=== PATIENT | female | born 1970 | race Caucasian/White ===

== ENCOUNTER → 2017-10-22 09:26 | Outpatient (POV) | payer SELFPAY | PROVIDERS: PCP Family Medicine; Visit Provider Otolaryngology | DX: Z00.00 Encounter for general adult medical examination without abnormal findings (principal) ==

== ENCOUNTER → 2018-02-21 16:18 | Outpatient (CLI) | payer BC, SELFPAY | PROVIDERS: PCP Family Medicine; Visit Provider Otolaryngology | DX: G47.30 Sleep apnea, unspecified (principal); G47.19 Other hypersomnia; R06.83 Snoring | CPT/HCPCS: 95806 ==

== ENCOUNTER 2022-05-11 06:29 | Day surgery (SDC) | payer BC, SELFPAY ==
[2022-05-07 13:11] VITALS: BMI 35.2
[2022-05-11 06:46] VITALS: BP 141/71; PULSE 96; RESP 18; TEMP 36.4; O2SAT 97
[2022-05-11 06:49] LABS: Urine Pregnancy, HCG Qual. Negative (Negative)
--- NOTE | 2022-05-11 07:04 | EXP.ANES.CKL ---
[facility] Disclaimer: The information contained in this section may have been updated after the patient was seen, as this information can be updated by other users. Medical History No significant past medical history Surgical History No significant past surgical history Family History Other No significant family history Social History Smoking Status: Never smoker alcohol intake: never substance use type: denies use current occupational status: other Travel in the last 8 weeks: None [facility] Anesthesia Checklist Patient Identification Patient Identification: Arm Band and Verbal (Name & ) Structural Data Admitted From: Home Planned Operative Procedure/s: Colonoscopy Consent for Planned Operative Procedure(s) Verified: Yes NPO Status Verified Time NPO: 00:00 Airway Assessment C-Spine Mobility Assessed: Yes TMJ Mobility Assessed: Yes Dentition: Good Dentition Neurological Assessment Level of Consciousness: Awake Hx Seizures: No Numbness or tingling in extremities: No Anesthesia Plan Anesthesia Risk discussed: Yes Anesthesia Plan: Verified ASA Class: I Anesthesia Type: MAC
[2022-05-11 07:22] VITALS: O2SAT 97
--- NOTE | 2022-05-11 07:59 | HMH.SCOPE ---
Procedure: Date: 05/11/22 Patient Date of :: 1970 Procedure Performed:: Total colonoscopy to terminal ileum with polypectomy by biopsy forceps Indications:: Patient is a 51-year-old female who presents for initial screening colonoscopy Performing Provider:: Lewis Paez MD Referring Provider:: Panfilo Chong MD Sedation:: MAC sedation Procedure:: Patient history was obtained and appropriate physical examination was performed. Patient's medications and allergies were reviewed. Informed consent was obtained after explaining the benefits, alternatives, and risks of the procedure including, but not limited to, bleeding, perforation, missed lesions, and adverse reaction to anesthesia medications. Patient was transported to endoscopy procedure room. Patient was connected to monitoring devices. Throughout the procedure the patient's blood pressure, pulse, and oxygen saturations were monitored continuously. Patient identification and planned procedure were verified by the staff. Patient was positioned in lateral decubitus position. Digital anorectal exam was performed. Variable stiffness Olympus colonoscope was inserted and advanced under direct visualization to the cecum. Adequacy of the colonic preparation was noted. The colonoscope was advanced a short distance into the terminal ileum. The colonoscope was then slowly withdrawn while carefully examining the color, texture, anatomy, and integrity of the mucosoa circumferentially. Within the rectum retroflexion was performed. Colonoscope was then withdrawn. Findings:: There was some particulate liquid stool. There were some stool balls in the rectosigmoid region. There was undigested vegetable matter in the cecum which could not be completely cleared. The thorough transcolonoscopic irrigation and suctioning was performed. There was a tiny diminutive approximately 2 mm polyp in the cecum removed with biopsy forceps. Impression: Suboptimal preparation Tiny 2 mm adenomatous appearing polyp in the cecum Recommendations:: Given the findings of the polyp was suboptimal preparation likely repeat colonoscopy in 2 or 3 years possibly with multi day prep Complications:: None immediately apparent Estimated blood obtained (mL): 1
[2022-05-11 08:00] VITALS: BP 76/41; PULSE 78; RESP 16; TEMP 36.8; O2SAT 92
[2022-05-11 08:10] VITALS: BP 79/48; PULSE 70; RESP 16; O2SAT 93
[2022-05-11 08:20] VITALS: BP 100/60; PULSE 79; RESP 16; O2SAT 93
[2022-05-11 08:32] VITALS: BP 108/63; PULSE 74; RESP 17; O2SAT 94
== END 2022-05-11 08:37 | disposition home or self-care (01) ==
PROVIDERS: PCP Family Medicine; Visit Provider Surgery
PROC: 0DJD8ZZ Inspection of Lower Intestinal Tract, Via Natural or Artificial Opening Endoscopic (ICD-10-PCS; CPT 45380; principal; 2022-05-11 07:30)
DX: Z12.11 Encounter for screening for malignant neoplasm of colon (principal); D12.0 Benign neoplasm of cecum
CPT/HCPCS: 45380; 81025; J2704

== ENCOUNTER → 2023-01-31 15:54 | Outpatient (CLI) | payer BC, SELFPAY ==
[2023-01-31 16:00] LABS: Adenovirus,PCR Not Detected (NotDetected); Bordetella Pertussis Not Detected (NotDetected); Chlamydophila Pneumoniae, PCR Not Detected (NotDetected); Coronavirus 229E Not Detected (NotDetected); Coronavirus NL63 Not Detected (NotDetected); Coronavirus OC43 Not Detected (NotDetected); Coronovirus HKU1,PCR Not Detected (NotDetected); Human Metapneumovirus Not Detected (NotDetected); Influenza A, PCR Not Detected (NotDetected); Influenza AH1, 2009 Not Detected (NotDetected); Influenza AH1, PCR Not Detected (NotDetected); Influenza AH3,PCR Not Detected (NotDetected); Influenza B, PCR Not Detected (NotDetected); Mycoplasma Pneumoniae, PCR Not Detected (NotDetected); Parainfluenza 1, PCR Not Detected (NotDetected); Parainfluenza 2, PCR Not Detected (NotDetected); Parainfluenza 3, PCR Not Detected (NotDetected); Parainfluenza 4, PCR Not Detected (NotDetected); Respiratory Syncytial Virus Not Detected (NotDetected); Rhinovirus/Enterovirus Not Detected (NotDetected)
[2023-01-31 18:49] LABS: Coronavirus 19, PCR Detected (NotDetected)
== END ==
PROVIDERS: PCP Family Medicine; Visit Provider Family Medicine
DX: Z20.822 Contact with and (suspected) exposure to COVID-19 (principal); U07.1 COVID-19
CPT/HCPCS: 87581; 87632; 87635; 87798

== ENCOUNTER 2023-05-30 08:00 | Outpatient (RCR) | payer BC, SELFPAY ==
--- NOTE | 2023-02-11 16:00 | HMH.OTOPEV ---
OT Inpatient Evaluation Rehab OT Outpatient Eval Start: 02/11/23 15:43 Freq: Status: Active Protocol: Document 02/11/23 15:43 RMARSHALL (Rec: 02/11/23 15:59 RMARSHALL [id number]) E-signed By Khadar Oliver, OT Outpatient Therapy Subjective History Subjective History Pt is a 52 year old female who reports to therapy for initial evaluation to left shoulder. Pt explains ~3 months ago she woke up with left shoulder pain and decreased motion. She does not recall a specific injury causing her pain to begin. She does have concerns due to continued progression of decreased AROM and pain. 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 She explains she does have constant repetitive motion bilaterally. Pt is right hand dominant. Therapist does observe significant decrease in pain and strength as well as stiffness in left shoulder. Pt also expresses difficulty with daily activities such as dressing, showering (washing her hair), and heavier household tasks. At this time , she is unable to reach above her head with left shoulder due to pain and decreased motion. Pt will continue to be seen twice a week in order to address all deficitis. Short term goals: 1. Pt will increase left shoulder flexion to 110 degrees in order to complete daily overhead tasks independently ~50% of the time . 2. Pt will increase L shoulder abduction to 110 degrees to complete upper body dressing independently ~50% of the time. 3. Pt will increase L shoulder ER/IR to 60 degrees ( ER) and 45 degrees (IR) in order to complete lower body dressing (putting on and taking off belt) independently ~50% of the time. 4. Pt will increase strength to 3+/5 throughout left shoulder in order to complete heavier household tasks ( laundry, mopping, vacuuming) independently ~50% of the time . 5. Pt will verbalize decreased pain levels at worst in L shoulder to a 5/10 in order to complete daily ADLs independently ~50% of the time . 6. Pt will demonstrate improved endurance by completing left shoulder exercises for ~20 minutes prior to rest break in order to increase his tolerance for daily work activities. 7. Pt will demonstrate independence with HEP of AAROM exercises to increase overall functional use of left shoulder in daily activities ~ 75% of the time. terminal makeup operator goals: 1. Pt will increase L shoulder flexion to 125 degrees in order to complete daily overhead tasks independently ~75% of the time . 2. Pt will increase L shoulder abduction to 120 degrees to complete upper body dressing independently ~75% of the time. 3. Pt will increase L shoulder ER/IR to 70 degrees ( ER) and 60 degrees (IR)in order to complete lower body dressing (putting on and taking off belt) independently ~75% of the time. 4. Pt will increase strength to 4-/5 throughout left shoulder in order to complete heavier household tasks ( laundry, mopping, vacuuming) independently ~75% of the time . 5. Pt will verbalize decreased pain levels at worst in L shoulder to a 3/10 in order to complete daily ADLs independently ~75% of the time . 6. Pt will demonstrate improved endurance by completing L shoulder exercises for ~30 minutes prior to rest break in order to increase his tolerance for daily work activities. 7. Pt will demonstrate independence with HEP of Rotator cuff strengthening exercises to increase overall functional use of L shoulder for daily activities ~90% of the time. New diagnosis of cancer in past 12 No months? Chief Complaint Pain,Stiff,Weakness Symptom Type Ache,Throb,Sharp,Dull,Stabbing Symptoms Relieved By Rest/Positioning Symptoms Aggravated By Physical Activity,Lifting Prior Functional Limitations None Current Functional Limitations Reaching,Lifting,Housework, Dressing,Desk Work/Reading, Driving,Sleeping,Recreation Activity Symptom Description Intermittent,Activity Dependent Level of pain today (0-10) 2 Pain scale - at its best (0-10) 0 Pain scale - at its worst (0-10) 7 Shoulder/Elbow Eval Shoulder Objective Measurements Shoulder ROM Left Shoulder Abduction Active Range of 75 degrees Motion (degrees) Shoulder Flexion Active Range of Motion 100 degrees (degrees) Query Text: Shoulder External Rotation Active Range 50 degrees of Motion (degrees) Shoulder Internal Rotation Active Range 25 degrees of Motion (degrees) Shoulder MMT Shoulder Abduction Strength Grade 3- Fair- Shoulder Flexion Strength Grade 3- Fair- Shoulder External Rotation Strength 3- Fair- Grade Shoulder Internal Rotation Strength 3- Fair- Grade Shoulder Strength Patient Testing Sitting Position Elbow Objective Measurements QuickDASH Activities Please rate your ability to do the following activities in the last week by selecting the number below the appropriate response. 1. Open a tight or new jar. Moderate difficulty 2. Do heavy electrical linesworker (e.g., wash Moderate difficulty ch, floors). 3. Carry a shopping bag or briefcase. Moderate difficulty 4. Wash your back. Moderate difficulty 5. Use a knife to cut food. Mild difficulty 6. Recreational activities in which you Moderate difficulty take some force or impact through your arm, shoulder, or hand (e.g., golf, hammering, tennis, etc.). 7. During the past week, to what extent Quite a bit has your arm, shoulder or hand problem interfered with your normal social activities with family, friends, neighbors or groups? 8. During the past week, were you Moderately limited limited in your work or other regular daily activites as a result of your arm, shoulder or hand problem? 9. Arm, shoulder or hand pain. Moderate 10. Tingling (pins and needles) in your Mild arm, shoulder or hand. 11. During the past week, how much Moderate difficulty difficulty have you had sleeping because of the pain in your arm, shoulder or hand? Quick DASH 32 Work Module (optional) The following questions ask about the impact of your arm, shoulder or hand problem on your ability to work (including homemaking if that is your main work role). 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 Yes 1. Using your usual technique for your Mild difficulty work? 2. Doing your usual work because of arm, Mild difficulty shoulder or hand pain? 3. Doing your work as well as you would No difficulty like? 4. Spending your usual amount of time No difficulty doing your work? Quick Dash Work Module Score 6 OT Outpatient Assessment Impairments Problems/Impairments Palpation Tenderness,Impaired Range of Motion,Impaired Strength,Impaired Endurance, Impaired Lifting,Impaired Dressing,Impaired Shower/ Bathing,Impaired Household Care,Impaired Recreational Activities,Impaired Work Activities,Subjective C/O Pain Prognosis Rehab Potential Good Clinical Impression Consistent with Diagnosis Yes Outpatient Therapy Plan of Care Treatment Plan May Include Therapeutic Exercise Including Home Yes Exercise Program Manual Therapy Techniques Yes Neuromuscular Re-education Yes Therapeutic Activities to Return to Yes Previous Functional/Work Level ADL/Self Care Education Yes Dry Needling Yes Thermal Modalities Yes Electrical Stimulation Yes Ultrasound/Phonophoresis Yes Iontophoresis Yes Orthotics/Bracing/Splinting Yes Massage Yes Eval/Re-Eval Yes Frequency Times per week 2 Duration Number of Weeks 6 Addendums This patient is a candidate for social No or vocational rehab? Patient/Guardian verbally acknowledges Yes understanding of treatment program and consents to further treatment? Patient/Guardian verbally acknowledges Yes understanding of diagnosis, prognosis and goals for treatment? Eval Complexity OT Charge 12742 - Moderate Complexity PHYSICIAN CERTIFICATION: I certify the specified therapy services for Radha Segura are required, authorized, and reviewed every 30 days.
--- NOTE | 2023-03-13 14:49 | HMH.RHREAS ---
Rehab Reassessment Rehab OP Re-assessment Start: 02/11/23 15:42 Freq: Status: Active Protocol: Document 03/13/23 13:58 BREANNE (Rec: 03/13/23 14:49 BREANNE [id number]) E-signed By Khadar Oliver OT QuickDASH Activities Please rate your ability to do the following activities in the last week by selecting the number below the appropriate response. 1. Open a tight or new jar. Moderate difficulty 2. Do heavy hearing therapist (e.g., wash Mild difficulty ch, floors). 3. Carry a shopping bag or briefcase. Mild difficulty 4. Wash your back. Moderate difficulty 5. Use a knife to cut food. Mild difficulty 6. Recreational activities in which you Moderate difficulty take some force or impact through your arm, shoulder, or hand (e.g., golf, hammering, tennis, etc.). 7. During the past week, to what extent Slightly has your arm, shoulder or hand problem interfered with your normal social activities with family, friends, neighbors or groups? 8. During the past week, were you Slightly limited limited in your work or other regular daily activites as a result of your arm, shoulder or hand problem? 9. Arm, shoulder or hand pain. Moderate 10. Tingling (pins and needles) in your Mild arm, shoulder or hand. 11. During the past week, how much Mild difficulty difficulty have you had sleeping because of the pain in your arm, shoulder or hand? Quick DASH 26 Work Module (optional) The following questions ask about the impact of your arm, shoulder or hand problem on your ability to work (including homemaking if that is your main work role). 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 Yes 1. Using your usual technique for your No difficulty work? 2. Doing your usual work because of arm, No difficulty shoulder or hand pain? 3. Doing your work as well as you would No difficulty like? 4. Spending your usual amount of time No difficulty doing your work? Quick Dash Work Module Score 4 Rehab Re-assessment Subjective Subjective Maybe a little better. Objective Objective Notes Pt continues to be seen twice a week in order to address left shoulder deficits. Each session pt engages in AROM, AAROM and strengthening exercises. Pt also receives PROM manual stretching in flexion, abduction, ER, and IR . Modalities are provided in order to decrease pain/ inflammation. Assessment Progress Assessment Progressing as Expected Assessment Notes Pt demonstrates improvement with AROM at left shoulder since initial evaluation. Pt does show improvement, but still remains limited in AROM. Pt reports her worst pain is now a 6/10 and usually occures in abduction. Pt is very consistent about attending therapy sessions. At this time, pt will continue to be seen for 4 more weeks. Current AROM L shoulder Flex: 128 degrees Abd: 105 degrees ER: 72 degrees IR: 45 degrees Patient goals met Short term goals 1. Pt will increase left shoulder flexion to 110 degrees in order to complete daily overhead tasks independently ~50% of the time . 3. Pt will increase L shoulder ER/IR to 60 degrees ( ER) and 45 degrees (IR) in order to complete lower body dressing (putting on and taking off belt) independently ~50% of the time. 6. Pt will demonstrate improved endurance by completing left shoulder exercises for ~20 minutes prior to rest break in order to increase his tolerance for daily work activities. 7. Pt will demonstrate independence with HEP of AAROM exercises to increase overall functional use of left shoulder in daily activities ~ 75% of the time. Goals Not Met See below Revised Goals Short term goals: 2. Pt will increase L shoulder abduction to 110 degrees to complete upper body dressing independently ~50% of the time. 4. Pt will increase strength to 3+/5 throughout left shoulder in order to complete heavier household tasks ( laundry, mopping, vacuuming) independently ~50% of the time . 5. Pt will verbalize decreased pain levels at worst in L shoulder to a 5/10 in order to complete daily ADLs independently ~50% of the time . predatory animal exterminator goals: 1. Pt will increase L shoulder flexion to 125 degrees in order to complete daily overhead tasks independently ~75% of the time . 2. Pt will increase L shoulder abduction to 120 degrees to complete upper body dressing independently ~75% of the time. 3. Pt will increase L shoulder ER/IR to 70 degrees ( ER) and 60 degrees (IR)in order to complete lower body dressing (putting on and taking off belt) independently ~75% of the time. 4. Pt will increase strength to 4-/5 throughout left shoulder in order to complete heavier household tasks ( laundry, mopping, vacuuming) independently ~75% of the time . 5. Pt will verbalize decreased pain levels at worst in L shoulder to a 3/10 in order to complete daily ADLs independently ~75% of the time . 6. Pt will demonstrate improved endurance by completing L shoulder exercises for ~30 minutes prior to rest break in order to increase his tolerance for daily work activities. 7. Pt will demonstrate independence with HEP of Rotator cuff strengthening exercises to increase overall functional use of L shoulder for daily activities ~90% of the time. Plan Plan Continue with OT plan of care at this time Frequency of Therapy 2x's a week Duration of therapy 4 more weeks Time and Billing Re-Eval Time 12 Re-Eval Billing Units 1 PHYSICIAN CERTIFICATION: I certify the specified therapy services for Radha Segura are required, authorized, and reviewed every 30 days.
--- NOTE | 2023-04-11 09:49 | HMH.RHREAS ---
Rehab Reassessment Rehab OP Re-assessment Start: 02/11/23 15:42 Freq: Status: Active Protocol: Document 04/11/23 08:05 BREANNE (Rec: 04/11/23 09:49 BREANNE [id number]) E-signed By Khadar Oliver OT QuickDASH Activities Please rate your ability to do the following activities in the last week by selecting the number below the appropriate response. 1. Open a tight or new jar. Mild difficulty 2. Do heavy research compliance specialist (e.g., wash Mild difficulty ch, floors). 3. Carry a shopping bag or briefcase. Mild difficulty 4. Wash your back. Mild difficulty 5. Use a knife to cut food. Mild difficulty 6. Recreational activities in which you Moderate difficulty take some force or impact through your arm, shoulder, or hand (e.g., golf, hammering, tennis, etc.). 7. During the past week, to what extent Slightly has your arm, shoulder or hand problem interfered with your normal social activities with family, friends, neighbors or groups? 8. During the past week, were you Slightly limited limited in your work or other regular daily activites as a result of your arm, shoulder or hand problem? 9. Arm, shoulder or hand pain. Mild 10. Tingling (pins and needles) in your Mild arm, shoulder or hand. 11. During the past week, how much Moderate difficulty difficulty have you had sleeping because of the pain in your arm, shoulder or hand? Quick DASH 24 Work Module (optional) The following questions ask about the impact of your arm, shoulder or hand problem on your ability to work (including homemaking if that is your main work role). 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 Yes 1. Using your usual technique for your Mild difficulty work? 2. Doing your usual work because of arm, Mild difficulty shoulder or hand pain? 3. Doing your work as well as you would Mild difficulty like? 4. Spending your usual amount of time Mild difficulty doing your work? Quick Dash Work Module Score 8 Rehab Re-assessment Subjective Subjective I do see some improvements. Objective Objective Notes Pt continues to be seen twice a week in order to address left shoulder deficits. Each session pt engages in AROM, AAROM and strengthening exercises. Pt also receives PROM manual stretching in flexion, abduction, ER, and IR . Modalities are provided in order to decrease pain/ inflammation. Assessment Progress Assessment Progressing as Expected Assessment Notes Pt demonstrates improvement with AROM at left shoulder since initial evaluation. Pt does show improvement, but still remains limited in AROM. Pt is very consistent about attending therapy sessions. At this time, pt will continue to be seen for 4 more weeks. Current AROM L shoulder Flex: 142 degrees Abd: 125 degrees ER: 80 degrees IR: 50 degrees Patient goals met Short term goals 1. Pt will increase left shoulder flexion to 110 degrees in order to complete daily overhead tasks independently ~50% of the time . 3. Pt will increase L shoulder ER/IR to 60 degrees ( ER) and 45 degrees (IR) in order to complete lower body dressing (putting on and taking off belt) independently ~50% of the time. 6. Pt will demonstrate improved endurance by completing left shoulder exercises for ~20 minutes prior to rest break in order to increase his tolerance for daily work activities. 7. Pt will demonstrate independence with HEP of AAROM exercises to increase overall functional use of left shoulder in daily activities ~ 75% of the time. 2. Pt will increase L shoulder abduction to 110 degrees to complete upper body dressing independently ~50% of the time. 4. Pt will increase strength to 3+/5 throughout left shoulder in order to complete heavier household tasks ( laundry, mopping, vacuuming) independently ~50% of the time . 5. Pt will verbalize decreased pain levels at worst in L shoulder to a 5/10 in order to complete daily ADLs independently ~50% of the time . Goals Not Met See below Revised Goals termite exterminator helper goals: 1. Pt will increase L shoulder flexion to 150 degrees in order to complete daily overhead tasks independently ~75% of the time . 2. Pt will increase L shoulder abduction to 130 degrees to complete upper body dressing independently ~75% of the time. 3. Pt will increase L shoulder ER/IR to 90 degrees ( ER) and 60 degrees (IR)in order to complete lower body dressing (putting on and taking off belt) independently ~75% of the time. 4. Pt will increase strength to 4-/5 throughout left shoulder in order to complete heavier household tasks ( laundry, mopping, vacuuming) independently ~75% of the time . 5. Pt will verbalize decreased pain levels at worst in L shoulder to a 3/10 in order to complete daily ADLs independently ~75% of the time . 6. Pt will demonstrate improved endurance by completing L shoulder exercises for ~30 minutes prior to rest break in order to increase his tolerance for daily work activities. 7. Pt will demonstrate independence with HEP of Rotator cuff strengthening exercises to increase overall functional use of L shoulder for daily activities ~90% of the time. Plan Plan Continue with OT plan of care at this time Frequency of Therapy 2x's a week Duration of therapy 4 more weeks Time and Billing Re-Eval Time 11 Re-Eval Billing Units 1 PHYSICIAN CERTIFICATION: I certify the specified therapy services for aRdha Segura are required, authorized, and reviewed every 30 days.
--- NOTE | 2023-05-07 15:16 | [facility].RHREAS ---
Rehab Reassessment Rehab OP Re-assessment Start: 02/11/23 15:42 Freq: Status: Active Protocol: Document 05/07/23 14:06 RMORLANDOL (Rec: 05/07/23 15:15 RMARSHALL [id number]) E-signed By Khadar Oliver OT Rehab Re-assessment Subjective Subjective I still can't sleep at night. Objective Objective Notes Pt continues to be seen twice a week in order to address left shoulder deficits. Each session pt engages in AROM, AAROM and strengthening exercises. Pt also receives PROM manual stretching in flexion, abduction, ER, and IR . Modalities are provided in order to decrease pain/ inflammation. Assessment Progress Assessment Progressing as Expected Assessment Notes Pt demonstrates improvement with AROM at left shoulder since last re-assessment. Pt does show improvement, but still remains limited in AROM, especially with internal rotation. Pt is very consistent about attending therapy sessions. She reports her worst pain remains as high as 8/10 especially with internal rotation and trying to sleep on left shoulder At this time, pt will continue to be seen for 4 more weeks. However, therapist also recommends pt return to PCP to discuss continued pain, decreased AROM, and possible ortho referral. Current AROM L shoulder Flex: 150 degrees Abd: 145 degrees ER: 85 degrees IR: 50 degrees Patient goals met Short term goals 1. Pt will increase left shoulder flexion to 110 degrees in order to complete daily overhead tasks independently ~50% of the time . 3. Pt will increase L shoulder ER/IR to 60 degrees ( ER) and 45 degrees (IR) in order to complete lower body dressing (putting on and taking off belt) independently ~50% of the time. 6. Pt will demonstrate improved endurance by completing left shoulder exercises for ~20 minutes prior to rest break in order to increase his tolerance for daily work activities. 7. Pt will demonstrate independence with HEP of AAROM exercises to increase overall functional use of left shoulder in daily activities ~ 75% of the time. 2. Pt will increase L shoulder abduction to 110 degrees to complete upper body dressing independently ~50% of the time. 4. Pt will increase strength to 3+/5 throughout left shoulder in order to complete heavier household tasks ( laundry, mopping, vacuuming) independently ~50% of the time . 5. Pt will verbalize decreased pain levels at worst in L shoulder to a 5/10 in order to complete daily ADLs independently ~50% of the time . [facility] goals: 1. Pt will increase L shoulder flexion to 150 degrees in order to complete daily overhead tasks independently ~75% of the time . 2. Pt will increase L shoulder abduction to 130 degrees to complete upper body dressing independently ~75% of the time. Goals Not Met See below Revised Goals long term care pharmacist goals: 1. Pt will increase L shoulder flexion to 160 degrees in order to complete daily overhead tasks independently ~75% of the time . 2. Pt will increase L shoulder abduction to 155 degrees to complete upper body dressing independently ~75% of the time. 3. Pt will increase L shoulder ER/IR to 90 degrees ( ER) and 60 degrees (IR)in order to complete lower body dressing (putting on and taking off belt) independently ~75% of the time. 4. Pt will increase strength to 4-/5 throughout left shoulder in order to complete heavier household tasks ( laundry, mopping, vacuuming) independently ~75% of the time . 5. Pt will verbalize decreased pain levels at worst in L shoulder to a 3/10 in order to complete daily ADLs independently ~75% of the time . 6. Pt will demonstrate improved endurance by completing L shoulder exercises for ~30 minutes prior to rest break in order to increase his tolerance for daily work activities. 7. Pt will demonstrate independence with HEP of Rotator cuff strengthening exercises to increase overall functional use of L shoulder for daily activities ~90% of the time. Plan Plan Continue with OT plan of care at this time. Pt to return to PCP to in order discuss further evaluation of shoulder due to continued pain. Therapist recommends possible referral to ortho Frequency of Therapy 2x's a week Duration of therapy 4 more weeks Time and Billing Re-Eval Time 12 Re-Eval Billing Units 1 PHYSICIAN CERTIFICATION: I certify the specified therapy services for Radha Segura are required, authorized, and reviewed every 30 days.
== END 2023-05-30 09:30 | disposition home or self-care (01) ==
LOC: OT 08:00
PROVIDERS: PCP Family Medicine; Visit Provider Family Medicine
DX: M25.512 Pain in left shoulder (principal)
CPT/HCPCS: 97010; 97014; 97035; 97110; 97140; 97164; 97166; 97530; G0283